=== PATIENT | female | born 1970 | race Caucasian/White ===

== ENCOUNTER → 2018-11-17 | Outpatient (CLI) | payer OTHER ==
--- NOTE | 2018-11-17 14:06 | REPMRS ---
Patient History The patient states she has not had a clinical breast exam in over a year. Family history of colorectal cancer in paternal grandmother, colorectal cancer in paternal uncle. Left breast bx 2015-benign Out of state priors being put on PACs The [place] lifetime risk for breast cancer is 11.9%. Digital Mammo Screening Bilat: November 17, 2018 - Exam #: [id number] Bilateral CC and MLO view(s) were taken. Technologist: Adriana Quinones Technologist FINDINGS: The breast tissue is extremely dense which could obscure a lesion on mammography. There has been no change in the appearance of the mammogram from the prior studies. There is a moderate amount of residual fibroglandular tissue which is fairly symmetric. There is no interval development of dominant mass, areas of architectural distortion, or clustered microcalcification typical of malignancy. Assessment: BI-RADS/ACR category 1 mammogram. Negative Mammogram. Recommendation Routine screening mammogram in 1 year (for women over age 40). This mammogram was interpreted with the aid of an FDA-approved computer-aided dectection system. Electronically Signed By: Clay Jama MD 11/17/18 1264
== END ==
LOC: M RAD 11:11
PROVIDERS: ATTEND Family Medicine
DX: Z12.31 Encounter for screening mammogram for malignant neoplasm of breast (principal)

== ENCOUNTER → 2020-01-20 | Outpatient (CLI) | payer OTHER ==
--- NOTE | 2020-01-20 14:30 | REP ---
INDICATION: SCREENING MAMMO. COMPARISON: 11/17/2018 as well as other prior exams. TECHNIQUE: MLO and CC views of both breasts performed with tomosynthesis. FINDINGS: The breast parenchyma is heterogeneously dense bilaterally. This limits the sensitivity of the mammogram. In the left retroareolar region a smoothly marginated oval nodular density is visualized with a maximum diameter of approximately 8 mm. This is questionably seen on the left MLO view. Otherwise no new mass or architectural distortion is seen. There are scattered benign calcifications bilaterally. The Volpara volumetric breast density pattern is D. IMPRESSION: BIRADS/ACR category 0 incomplete. Oval 8 mm left retroareolar nodular density appears smoothly marginated and well defined. It is best seen in the CC projection and is questionably seen on the MLO projection. Recommend spot-compression views in the MLO and CC projections as well as a left mL tomographic sequence. Ultrasound will likely be necessary. This patient's Tyrer-Cuzick lifetime breast cancer risk assessment score is 11.7%. This mammogram was interpreted with the aid of an FDA-approved computer-aided detection system. The patient states she had a clinical breast exam in over 1 year ago. The patient letter being requested is M0. RECOMMENDATION: Recommend spot compression views and ultrasound left breast. <Electronically signed by Clay Jama > 01/20/20 [id number]
== END ==
LOC: M WHC 13:34
PROVIDERS: ATTEND Family Medicine
DX: Z12.31 Encounter for screening mammogram for malignant neoplasm of breast (principal); N63.20 Unspecified lump in the left breast, unspecified quadrant

== ENCOUNTER → 2020-02-03 | Outpatient (CLI) | payer OTHER ==
--- NOTE | 2020-02-04 03:29 | REP ---
INDICATION: PAIN IN BOTH LEGS COMPARISON: None. TECHNIQUE: Jama scale and color Doppler evaluation using linear high frequency transducer with reflux evaluation. FINDINGS: Ultrasound examination of the right and left lower extremity deep venous structures from the common femoral vein to the popliteal vein demonstrates normal compressibility flow and wave patterns in response to respiration and augmentation. There is no evidence for deep venous thrombosis. The patient is noted to be status post prior bilateral greater saphenous vein ablation. The right lower extremity demonstrates no reflux. The left lower extremity demonstrates reflux through the lesser saphenous vein which measures 44 mm diameter and reflux duration 4.6 seconds. IMPRESSION: 1. No evidence for deep venous thrombosis. 2. History of prior bilateral greater saphenous vein ablation. Minimal reflux through the left lesser saphenous vein noted. <Electronically signed by Valentino Arellano > 02/04/20 [id number]
== END ==
LOC: M RAD 11:53
PROVIDERS: ATTEND Physician Assistant
DX: M79.604 Pain in right leg (principal); M79.605 Pain in left leg; I87.2 Venous insufficiency (chronic) (peripheral)

== ENCOUNTER → 2020-02-08 | Outpatient (CLI) | payer OTHER ==
--- NOTE | 2020-02-08 10:42 | REP ---
INDICATION: ADDL VIEWS/LEFT BREAST/NODULAR DENSITY; ADDL VIEWS/LEFT BREAST NODULAR DENSITY. Screening study from 20 January 2020 was BI-RADS category 0. Diagnostic imaging recommended. COMPARISON: January 2020, 17 November 2018, and 09 January 2017. TECHNIQUE: Magnified focal spot-compression CC, true mL, and MLO views of the left breast are obtained. 3D tomography was acquired in the mL projection. FINDINGS: Breast parenchyma is again seen to be extremely head and heterogeneously dense in a pattern which may inhibit the sensitivity mammography. There are punctate calcifications adjacent to a needle biopsy clip in the lateral aspect of the left breast unchanged. Diagnostic imaging confirms the presence of a 9.5 x 5.6 by 9.4 cm nodule within a dilated duct in the retroareolar region of the left breast. The dilated duct contains radiolucent, fat, density material The Volpara volumetric breast density pattern is B. Targeted left breast retroareolar sonography demonstrates a intraductal oval-shaped solid lesion measuring 10 x 7 x 3 mm. This appears sonographically to be within a duct as well. IMPRESSION: BIRADS/ACR category 4 suspicious left breast mammogram and sonographic findings. Biopsy should be considered. This patient's Tyrer-Cuzick lifetime breast cancer risk assessment score is 11.7%. This mammogram was interpreted with the aid of an FDA-approved computer-aided detection system. RECOMMENDATION: Breast surgical referral recommended. Histologic sampling is indicated. Consideration could be given to ultrasound-guided needle biopsy with clip placement and post clip placement mammography. Ultrasound-guided needle localization directed excisional biopsy would be an option for consideration as well.. The patient letter being requested is M4. <Electronically signed by Robin Brush > 02/08/20 1038
== END ==
LOC: M WHC 08:00
PROVIDERS: ATTEND Family Medicine
DX: R92.8 Other abnormal and inconclusive findings on diagnostic imaging of breast (principal); Z97.8 Presence of other specified devices; N63.25 Unspecified lump in the left breast, overlapping quadrants
CPT/HCPCS: 76642; 77065; G0279

== ENCOUNTER → 2020-03-24 | Outpatient (CLI) | payer OTHER ==
[2020-03-24 15:26] VITALS: BP 124/68
--- NOTE | 2020-03-24 15:55 | REP ---
INDICATION: LT BREAST LESION,POST US GUIDED BIOPSY. COMPARISON: 01/20/2020 and 02/08/2020. TECHNIQUE: ML and CC views left breast performed following ultrasound-guided biopsy of a left retroareolar nodule located in a dilated duct. FINDINGS: Biopsy clip is seen at the site of the nodule which was previously identified by mammography in the retroareolar region. IMPRESSION: Appropriate biopsy clip placement at the site of a left retroareolar nodule identified on prior mammography, biopsied with ultrasound guidance today. RECOMMENDATION: Clinical follow-up. <Electronically signed by Clay Jama > 03/24/20 0097
--- NOTE | 2020-03-24 15:57 | REP ---
INDICATION: LT BREAST LESION,US GUIDED BIOPSY. COMPARISON: None. TECHNIQUE: The procedure was performed under the direct supervision of Dr. Jama. The risks and benefits of the procedure were explained to the patient and informed consent was obtained. Patient has a history of an intraductal oval-shaped solid lesion measuring 10 x 7 x 3 mm seen on a previous ultrasound dated 02/08/2020. The left breast nodule was localized using ultrasound guidance. The skin was prepped and draped in a sterile fashion. 1% Xylocaine was used as a local anesthetic. Using ultrasound guidance a 13 gauge Bard biopsy needle was inserted and6 core biopsy samples were obtained. A marker clip was placed at the biopsy site The patient tolerated the procedure well and there were no immediate complications. After the appropriate amount of monitored convalescence, the patient was discharged from the department. FINDINGS: None IMPRESSION: Ultrasound-guided left breast biopsy with marker clip placement. <Electronically signed by Esteban Maldonado > 03/24/20 3071 <Electronically signed by Clay Jama > 03/24/20 [id number]
== END ==
LOC: M WHCPRO 14:14
PROVIDERS: ATTEND Family Medicine
DX: N60.12 Diffuse cystic mastopathy of left breast (principal); N63.20 Unspecified lump in the left breast, unspecified quadrant